=== PATIENT | male | born 1990 | race Two or more races ===

== ENCOUNTER 2020-03-15 07:25 | Outpatient (REF) | payer MEDICAID, SELFPAY | END 2020-03-15 07:26 | disposition home or self-care (01) | LOC: HO.LAB 07:25 | PROVIDERS: PCP Internal Medicine; Visit Provider Internal Medicine | DX: Z20.828 Contact with and (suspected) exposure to other viral communicable diseases (principal) | CPT/HCPCS: C9803; U0003 ==

== ENCOUNTER 2020-10-26 08:19 | Emergency (ER) | payer MEDICAID, SELFPAY ==
[2020-10-26 08:25] VITALS: BP 120/75; PULSE 90; RESP 18; TEMP 36.6; O2SAT 99; BMI 22.6
--- NOTE | 2020-10-26 08:59 | ECG_ITS ---
Test Reason : GENERAL MEDICAL Blood Pressure : / mmHG Vent. Rate : 058 BPM Atrial Rate : 058 BPM P-R Int : 146 ms QRS Dur : 094 ms QT Int : 418 ms P-R-T Axes : -10 044 041 degrees QTc Int : 410 ms Sinus bradycardia Otherwise normal ECG No previous ECGs available Referred By: Jania Duval Electronically Signed By:Remy Olson
--- NOTE | 2020-10-26 09:00 | PC.NURSE ---
Patient is alert and oriented. Pt states that his stomach hurts if he has a coughing fit. Pt currently denies any pain. Respirations are even and nonlabored
[2020-10-26 09:10] VITALS: BP 123/78; PULSE 60; RESP 16; O2SAT 99
[2020-10-26] MEDS: 0.9 % Sodium Chloride 1,000 ML 999 ML IVCONT (09:11)
[2020-10-26 09:15] LABS: MANUAL DIFF FLAG NO
--- NOTE | 2020-10-26 09:15 | ED_ITS ---
HPI - General Adult General Chief complaint: General Medical Stated complaint: coughing up blood Time Seen by Provider: 10/26/20 08:27 Source: patient Mode of arrival: ambulatory Limitations: no limitations History of Present Illness HPI narrative: 30-year-old male with a past medical history of asthma presenting to the ED with complaints of subjective fevers, chills, intermittent coughing fits with hemoptysis that started on Friday with associated lower chest pain and epigastric/left upper quadrant abdominal pain. Reports that he drank a few shots of alcohol on Friday although his symptoms started the day prior. He denies any measured fevers, dizziness, headache, shortness of breath, dyspnea on exertion, orthopnea, productive cough, radiation of the abdominal pain, diarrhea, constipation, black or bloody stools, recent travel or sick contacts or recent falls or injuries or any other symptoms complaints or concerns at this time. MD complaint: Fevers, chills, intermittent cough with hemoptysis, chest/abd pain Onset (ago): day(s) (Five days) Location: chest and abdomen Related Data Previous Rx's Medication Instructions Recorded lorazepam 1 mg tablet (Ativan) 1 mg PO TID PRN #10 tab 10/26/20 Allergies Allergy/AdvReac Type Severity Reaction Status Date / Time ibuprofen [IBUPROFEN] Allergy Severe FACE Unverified 12/09/19 15:54 SWELLS, HIVES cat dander [CATS] Allergy Intermediate ITCHY EYES Unverified 12/09/19 15:54 AND THROAT, HIVES aspirin Allergy Itching Verified 10/26/20 08:30 Review of Systems Review of Systems: Constitutional : No Weight loss, No Fever, No Chills, No Night Sweats, No Fatigue, No Malaise ENT/Mouth : No Hearing loss, No Ear Pain, No Nasal Congestion, No Sinus Pain, No Hoarseness, No sore throat, No Rhinorrhea, No Swallowing Difficulty Eyes: No Eye Pain, No Swelling, No Redness, No Foreign Body, No Discharge, No Vision Changes Cardiovascular : No SOB, no Dyspnea on Exertion, No Orthopnea, No Edema, No extremity swelling, No Palpitations Respiratory : Positive Cough with hemoptysis, No Sputum, No Wheezing, No Dyspnea Gastrointestinal : Positive nausea/vomiting/epigastric/left upper quadrant abdominal pain, No Diarrhea, No Hematochezia, No Melena Genitourinary : No irregular bleeding, No Dysuria, No Urinary Frequency, No Hematuria, No Urinary Incontinence, No Urgency, No Flank Pain, No Urinary Flow Changes, No Hesitancy Musculoskeletal : No joint pain, No Myalgias, No Joint Swelling Skin : No Skin Lesions, No rash Neuro : No Weakness, No Numbness, No Paresthesias, No Loss of Consciousness, No Dizziness, No Headache Psych : No Anxiety/Panic, No Depression, No SI/HI/AH/VH Heme/Lymph: No Bruising, No Bleeding,No Lymphadenopathy Endocrine : No Polyuria, No Polydipsia, No Temperature Intolerance Yes all other systems are reviewed and are negative [facility] Past Medical History Medical History (Updated 10/26/20 @ 10:35 by TAYLOR Holcomb) Asthma Social History Social History Alcohol intake: current Alcohol intake frequency: holidays/special occasions only Patient Tobacco Use Status: Current someday Tobacco user Substance Use Type: Marijuana Advance Directives: No Advance Directives Information Provided: Yes Physical Exam Vital Signs: Vital Signs: Last Vital Signs Temp 98 F 10/26/20 08:25 Pulse 58 10/26/20 10:50 Resp 17 10/26/20 10:50 BP 127/72 10/26/20 10:50 Pulse Ox 97 10/26/20 10:50 Body Mass Index 22.6 Course Course Course Narrative: 30-year-old male with a past medical history of asthma presenting to the ED with complaints of subjective fevers, chills, intermittent coughing fits with hemoptysis that started on Friday with associated lower chest pain and epigastric/left upper quadrant abdominal pain. Reports that he drank a few shots of alcohol on Friday although his symptoms started the day prior. Labs obtained and reviewed in patient's total bilirubin 1.4. Otherwise all other labs are within normal limits. COVID swab negative. - Patient was pending a CTA of chest for PE and a CT scan of abdomen and pelvis with IV contrast although apparently his job called him and told him if he was not at work by 11:00 that he would be fired even if he was here in the hospital and patient was crying in the room he really did want to have the CTA of his [address] for PE and a CT scan abdomen pelvis IV contrast although he reported he did not want to lose his job I explained to him that legally they cannot fire him if he is seeking medical treatment although the patient wanted to leave against medical advice because he did not want to risk losing his job therefore understood this and explained to the patient to return if any new or worsening symptoms and if he can to come [facility] and to follow up with primary care provider. Patient understands agrees with this plan. Medical Decision Making Medical Records Medical records reviewed: Yes I reviewed the patient's medical records. Lab Data Lab results reviewed: Yes I reviewed the patient's lab results. Result diagrams: 10/26/20 08:59 10/26/20 08:59 Labs: Lab Results 10/26/20 10/26/20 10/26/20 Range/Units 08:59 08:59 08:59 WBC 7.2 (4.8-10.8) X10*3/uL RBC 5.05 (4.60-5.80) X10*6/uL Hgb 15.4 (14.0-18.0) g/dl Hct 44.9 (42-52) % MCV 88.9 (80-98) fL MCH 30.5 (27.0-33.0) pg MCHC 34.3 (31.0-36.0) g/dl RDW 12.4 (11.0-16.0) % Plt Count 284 (160-400) X10*3/uL MPV 8.9 L (9.4-12.4) fL Immature Gran % (Auto) 0.3 (0.0-0.4) % Neut % (Auto) 66.9 (45-73) % Lymph % (Auto) 22.5 (20-40) % [place] % (Auto) 7.9 (2-11) % Eos % (Auto) 1.7 (0-4) % Baso % (Auto) 0.7 (0-2) % Lymph # (Auto) 1.6 (1.2-4.9) X10*3/uL [place] # (Auto) 0.6 (0.1-1.2) X10*3/uL Eos # (Auto) 0.1 (0.0-0.4) X10*3/uL Baso # (Auto) 0.1 (0.0-0.2) X10*3/uL Abs Immat Gran (auto) 0.02 (0.00-0.03) X10*3/uL Absolute Neuts (auto) 4.9 (2.0-8.3) X10*3/uL Absolute Nucleated RBC 0.000 (0.0-0.012) X10*3/uL Nucleated RBC % (auto) 0.0 (0.0-0.2) /100WBC PT 11.3 (9.9-13.0) SEC INR 1.0 (0.9-1.1) APTT 32.8 (24.1-38.0) SEC Sodium (135-145) mmol/L Potassium (3.3-5.1) mmol/L Chloride (96-108) mmol/L Carbon Dioxide (22-29) mmol/L Anion Gap (12-20) BUN (9-16) mg/dL Creatinine (0.5-1.4) mg/dL Estim Creat Clear Calc Estimated GFR Random Glucose (60-115) mg/dL Calcium (8.4-10.2) mg/dL Total Bilirubin (0.0-1.0) mg/dL Direct Bilirubin (0.0-0.5) mg/dL AST (5-37) U/L ALT (0-40) U/L Alkaline Phosphatase (39-117) U/L Total Protein (6.5-8.0) g/dL Albumin (3.5-5.0) g/dL Lipase (8-78) U/L COVID-19 (REGGIE) Negative (Negative) COVID-19 Clin Com See Note 10/26/20 Range/Units 08:59 WBC (4.8-10.8) X10*3/uL RBC (4.60-5.80) X10*6/uL Hgb (14.0-18.0) g/dl Hct (42-52) % MCV (80-98) fL MCH (27.0-33.0) pg MCHC (31.0-36.0) g/dl RDW (11.0-16.0) % Plt Count (160-400) X10*3/uL MPV (9.4-12.4) fL Immature Gran % (Auto) (0.0-0.4) % Neut % (Auto) (45-73) % Lymph % (Auto) (20-40) % [place] % (Auto) (2-11) % Eos % (Auto) (0-4) % Baso % (Auto) (0-2) % Lymph # (Auto) (1.2-4.9) X10*3/uL [place] # (Auto) (0.1-1.2) X10*3/uL Eos # (Auto) (0.0-0.4) X10*3/uL Baso # (Auto) (0.0-0.2) X10*3/uL Abs Immat Gran (auto) (0.00-0.03) X10*3/uL Absolute Neuts (auto) (2.0-8.3) X10*3/uL Absolute Nucleated RBC (0.0-0.012) X10*3/uL Nucleated RBC % (auto) (0.0-0.2) /100WBC PT (9.9-13.0) SEC INR (0.9-1.1) APTT (24.1-38.0) SEC Sodium 138 (135-145) mmol/L Potassium 4.1 (3.3-5.1) mmol/L Chloride 103 (96-108) mmol/L Carbon Dioxide 27 (22-29) mmol/L Anion Gap 12 (12-20) BUN 13 (9-16) mg/dL Creatinine 1.08 (0.5-1.4) mg/dL Estim Creat Clear Calc 88.1 Estimated GFR > 60 Random Glucose 115 (60-115) mg/dL Calcium 9.3 (8.4-10.2) mg/dL Total Bilirubin 1.4 H (0.0-1.0) mg/dL Direct Bilirubin 0.4 (0.0-0.5) mg/dL AST 20 (5-37) U/L ALT 18 (0-40) U/L Alkaline Phosphatase 69 (39-117) U/L Total Protein 7.4 (6.5-8.0) g/dL Albumin 4.6 (3.5-5.0) g/dL Lipase 22 (8-78) U/L COVID-19 (REGGIE) (Negative) COVID-19 Clin Com Discharge Plan Discharge Clinical Impression: Cough with hemoptysis, Abdominal pain, Left against medical advice Patient Disposition: Left Against Medical Advice Instructions: Hemoptysis (ED), Abdominal Pain (ED), Acute Cough (ED) Prescriptions: New lorazepam [Ativan] 1 mg tablet 1 mg PO TID PRN (Reason: anxiety) Qty: 10 RF: 0 Referrals: Aung Funes MD [Primary Care Provider] - 2 days Stand Alone Forms: Work/School Release Interventions: ED Discharge Assessment Last Done: 10/26/20 10:50 Discharge Date/Time: 10/26/20 10:54 Print Language: Syriac
[2020-10-26 09:24] LABS: Basophils Absolute Auto 0.1 X10*3/uL (0.0-0.2); Basophils Percent Auto 0.7 % (0-2); Eosinophils Absolute Auto 0.1 X10*3/uL (0.0-0.4); Eosinophils Percent Auto 1.7 % (0-4); Hematocrit 44.9 % (42-52); Hemoglobin 15.4 g/dl (14.0-18.0); Imm Gran Abs Auto 0.02 X10*3/uL (0.00-0.03); Imm Gran Pct Auto 0.3 % (0.0-0.4); Lymphocytes Absolute Auto 1.6 X10*3/uL (1.2-4.9); Lymphocytes Percent Auto 22.5 % (20-40); Mean Corpuscular HGB Conc 34.3 g/dl (31.0-36.0); Mean Corpuscular Hemoglobin 30.5 pg (27.0-33.0); Mean Corpuscular Volume 88.9 fL (80-98); Mean Platelet Volume 8.9 fL (9.4-12.4); Monocytes Absolute Auto 0.6 X10*3/uL (0.1-1.2); Monocytes Percent Auto 7.9 % (2-11); Neutrophils Absolute Auto 4.9 X10*3/uL (2.0-8.3); Neutrophils Percent Auto 66.9 % (45-73); Platelet Count 284 X10*3/uL (160-400); Red Blood Count 5.05 X10*6/uL (4.60-5.80); Red Cell Distribution Width 12.4 % (11.0-16.0); White Blood Count 7.2 X10*3/uL (4.8-10.8)
[2020-10-26 09:43] LABS: COVID-19 Test Negative (Negative); IDNOW Serial# 08D9AD1C
[2020-10-26 09:55] LABS: Prothrombin Time 11.3 SEC (9.9-13.0)
[2020-10-26 09:57] LABS: Alanine Aminotransferase 18 U/L (0-40); Albumin Level 4.6 g/dL (3.5-5.0); Alkaline Phosphatase 69 U/L (39-117); Anion Gap 12 (12-20); Aspartate Amino Transferase 20 U/L (5-37); Bilirubin Direct 0.4 mg/dL (0.0-0.5); Bilirubin Total 1.4 mg/dL (0.0-1.0); Blood Urea Nitrogen 13 mg/dL (9-16); Calcium 9.3 mg/dL (8.4-10.2); Carbon Dioxide 27 mmol/L (22-29); Chloride 103 mmol/L (96-108); Creatinine Clr Calc Pharmacy 88.1; Estimated Glomerular Filt Rate > 60; Glucose Random 115 mg/dL (60-115); Lipase 22 U/L (8-78); Partial Thromboplastin Time 32.8 SEC (24.1-38.0); Potassium 4.1 mmol/L (3.3-5.1); Sodium 138 mmol/L (135-145); Total Protein 7.4 g/dL (6.5-8.0)
--- NOTE | 2020-10-26 10:48 | PC.NURSE ---
Patient leaving against medical advice. Pt encouraged to stay for treatment but states he cannot because his job is threatening to fire him if he does not go in.
[2020-10-26 10:50] VITALS: BP 127/72; PULSE 58; RESP 17; O2SAT 97
== END 2020-10-26 10:54 | disposition left against medical advice (07) ==
PROVIDERS: Emergency Provider Emergency Medicine; PCP Internal Medicine
DX: R04.2 Hemoptysis (principal); R10.9 Unspecified abdominal pain; Z20.822 Contact with and (suspected) exposure to COVID-19; Z79.899 Other long term (current) drug therapy
CPT/HCPCS: 36415; 80048; 80076; 83690; 85025; 85610; 85730; 87635; 93005; 99284

== ENCOUNTER 2020-10-27 22:12 | Emergency (ER) | payer MEDICAID, SELFPAY | END 2020-10-27 22:35 | disposition left against medical advice (07) | PROVIDERS: Emergency Provider Emergency Medicine; PCP Internal Medicine | DX: R05 Cough (principal) ==

== ENCOUNTER 2020-10-28 18:35 | Emergency (ER) | payer MEDICAID, SELFPAY ==
[2020-10-28 19:01] VITALS: BP 135/89; PULSE 73; RESP 16; TEMP 37.1; O2SAT 98; BMI 22.6
--- NOTE | 2020-10-28 21:26 | ED.GENADULT ---
HPI - General Adult General Chief complaint: General Medical Stated complaint: coughing blood Time Seen by Provider: 10/28/20 21:18 Source: patient Mode of arrival: ambulatory Limitations: no limitations History of Present Illness HPI narrative: Patient comes to the emergency room requesting a printout of his COVID results from October 26. Patient states that he was seen here 2 days ago because he had an episode of hemoptysis. Patient states that hours before he coughed up blood, he had a bloody nose. Patient states that since he was seen in the emergency room, patient feels completely normal, no coughing, no shortness of breath, no hemoptysis, no fever chills. Related Data Previous Rx's Medication Instructions Recorded lorazepam 1 mg tablet (Ativan) 1 mg PO TID PRN #10 tab 10/26/20 Allergies Allergy/AdvReac Type Severity Reaction Status Date / Time ibuprofen [IBUPROFEN] Allergy Severe FACE Unverified 12/09/19 15:54 SWELLS, HIVES cat dander [CATS] Allergy Intermediate ITCHY EYES Unverified 12/09/19 15:54 AND THROAT, HIVES aspirin Allergy Itching Verified 10/26/20 08:30 Review of Systems Review of Systems: Constitutional : No Weight loss, No Fever, No Chills, No Night Sweats, No Fatigue, No Malaise ENT/Mouth : No Hearing loss, No Ear Pain, No Nasal Congestion, No Sinus Pain, No Hoarseness, No sore throat, No Rhinorrhea, No Swallowing Difficulty Eyes: No Eye Pain, No Swelling, No Redness, No Foreign Body, No Discharge, No Vision Changes Cardiovascular : No Chest Pain, No SOB, No Dyspnea on Exertion, No Orthopnea, No Edema, No Palpitations Respiratory : No Cough, No Sputum, No Wheezing, No Smoke Exposure, No Dyspnea Gastrointestinal : No Nausea, No Vomiting, No Diarrhea, No Constipation, No abdominal Pain, No Hematochezia, No Melena Genitourinary : no irregular bleeding, No Dysuria, No Urinary Frequency, No Hematuria, No Urinary Incontinence, No Urgency, No Flank Pain, No Urinary Flow Changes, No Hesitancy Musculoskeletal : No joint pain, No Myalgias, No Joint Swelling Skin : No Skin Lesions, No rash Neuro : No Weakness, No Numbness, No Paresthesias, No Loss of Consciousness, No Dizziness, No Headache Psych : No Anxiety/Panic, No Depression, No SI/HI/AH/VH, No Social Issues, Heme/Lymph: No Bruising, No Bleeding,No Lymphadenopathy Endocrine : No Polyuria, No Polydipsia, No Temperature Intolerance PMF Past Medical History Medical History Asthma Social History Social History Alcohol intake: current Alcohol intake frequency: holidays/special occasions only Patient Tobacco Use Status: Current someday Tobacco user Substance Use Type: Marijuana Advance Directives: No Physical Exam Vital Signs: Vital Signs: Last Vital Signs Temp 98.7 F 10/28/20 19:01 Pulse 73 10/28/20 19:01 Resp 16 10/28/20 19:01 BP 135/89 10/28/20 19:01 Pulse Ox 98 10/28/20 19:01 Body Mass Index 22.6 Const: Other: Appearance: Alert. Oriented X3. No acute distress. Eyes: Pupils equal, round and reactive to light. ENT: Pharynx normal. Neck: Normal inspection. Neck supple. No lymph nodes noted. No crepitus CVS: Normal heart rate and rhythm. Pulses normal. Normal S1 and S2 Respiratory: No respiratory distress. Breath sounds normal. No Wheezing. No rales Abdomen: Soft and nontender. No rigidity. No distention. good BS x4 Skin: Skin warm and dry. Normal skin color. Normal skin turgor. Extremities: No lower extremity edema. No Lacerations. No Rash Neuro: Oriented X 3. No motor deficit. No sensory deficit. Moving all extermities. No slurred speech. Course Course Course Narrative: I discussed with the patient that it is likely that a 1 time episode of hemoptysis she had was likely secondary to the nosebleed he had before. Patient is asymptomatic. I offered to the patient and you COVID swab and a chest x-ray, patient declined. Patient only wants his pain does report from October 26 Discharge Plan Discharge Clinical Impression: Cough in adult, Normal exam Patient Disposition: Home, Self-Care Instructions: Acute Cough (ED) Additional Instructions: Please follow-up with your primary care physician tomorrow. If you have any worsening or new symptoms, please return to the emergency room or call 911 Prescriptions: No Action lorazepam [Ativan] 1 mg tablet 1 mg PO TID PRN (Reason: anxiety) Qty: 10 RF: 0
== END 2020-10-28 21:44 | disposition home or self-care (01) ==
PROVIDERS: Emergency Provider Emergency Medicine
DX: Z71.1 Person with feared health complaint in whom no diagnosis is made (principal); R05 Cough
CPT/HCPCS: 99282; 99283

== ENCOUNTER 2021-03-01 09:15 | Outpatient (REF) | payer MEDICAID, SELFPAY ==
[2021-03-01 09:51] LABS: COVID-19 Test Negative (Negative)
== END 2021-03-01 09:16 | disposition home or self-care (01) ==
LOC: HO.LAB 09:15
PROVIDERS: Visit Provider Internal Medicine
DX: Z20.822 Contact with and (suspected) exposure to COVID-19 (principal)
CPT/HCPCS: 36415; 87635; C9803

== ENCOUNTER 2021-10-19 12:54 | Emergency (ER) | payer MEDICAID, SELFPAY ==
[2021-10-19 12:59] VITALS: BP 116/78; PULSE 62; RESP 18; TEMP 37.2; O2SAT 97; BMI 25.6
[2021-10-19 13:16] LABS: COVID-19 Test Positive (Negative); IDNOW Serial# 16C4AD1C
[2021-10-19 15:47] VITALS: BP 132/76; PULSE 78; RESP 18; TEMP 37.3; O2SAT 99
--- NOTE | 2021-10-19 16:20 | ED_ITS ---
HPI - General Adult General Chief complaint: General Medical Stated complaint: covid+ Time Seen by Provider: 10/19/21 15:20 Source: patient Mode of arrival: ambulatory Limitations: no limitations History of Present Illness HPI narrative: pt comes to the ED c/o flu like symptoms. Pt c/o nausea, vomiting, general weakness. Pt denies chest pain or SOB. Pt had a positive covid test 1 week ago. Patient has not been immunized for COVID-19 at all Related Data Previous Rx's Medication Instructions Recorded lorazepam 1 mg tablet (Ativan) 1 mg PO TID PRN anxiety #10 tabs 10/26/20 ondansetron 4 mg disintegrating 4 mg PO Q6H PRN nausea and 10/19/21 tablet vomiting #14 tabs Allergies Allergy/AdvReac Type Severity Reaction Status Date / Time ibuprofen [IBUPROFEN] Allergy Severe FACE Unverified 12/09/19 15:54 SWELLS, HIVES cat dander [CATS] Allergy Intermediate ITCHY EYES Unverified 12/09/19 15:54 AND THROAT, HIVES aspirin Allergy Itching Verified 10/26/20 08:30 Review of Systems Review of Systems: Constitutional : No Weight loss, No Fever, complaining of chills, fatigue, generalized malaise ENT/Mouth : No Hearing loss, No Ear Pain, No Nasal Congestion, No Sinus Pain, No Hoarseness, No sore throat, No Rhinorrhea, No Swallowing Difficulty Eyes: No Eye Pain, No Swelling, No Redness, No Foreign Body, No Discharge, No Vision Changes Cardiovascular : No Chest Pain, No SOB, No Dyspnea on Exertion, No Orthopnea, No Edema, No Palpitations Respiratory : No Cough, No Sputum, No Wheezing, No Smoke Exposure, No Dyspnea Gastrointestinal : Complaining of nausea vomiting, No Diarrhea, No Constipation, No abdominal Pain, No Hematochezia, No Melena Genitourinary : no irregular bleeding, No Dysuria, No Urinary Frequency, No Hematuria, No Urinary Incontinence, No Urgency, No Flank Pain, No Urinary Flow Changes, No Hesitancy Musculoskeletal : No joint pain, No Myalgias, No Joint Swelling Skin : No Skin Lesions, No rash Neuro : No Weakness, No Numbness, No Paresthesias, No Loss of Consciousness, No Dizziness, No Headache Psych : No Anxiety/Panic, No Depression, No SI/HI/AH/VH, No Social Issues, Heme/Lymph: No Bruising, No Bleeding,No Lymphadenopathy Endocrine : No Polyuria, No Polydipsia, No Temperature Intolerance [facility] Past Medical History Medical History Asthma Social History Social History Alcohol intake: current Alcohol intake frequency: holidays/special occasions only Patient Tobacco Use Status: Current someday Tobacco user Substance Use Type: Marijuana Advance Directives: No Advance Directives Information Provided: No Physical Exam ED Vital Signs: Vital Signs - 24 hr 10/19/21 12:59 10/19/21 15:47 Temperature 98.9 F 99.2 F Pulse Rate 62 78 Respiratory Rate 18 18 Blood Pressure 116/78 132/76 Pulse Oximetry 97 99 Oxygen Delivery Method Room Air Room Air BMI result Body Mass Index 25.6 Const Other: Appearance: Alert. Oriented X3. No acute distress. Eyes: Pupils equal, round and reactive to light. ENT: Pharynx normal. Neck: Normal inspection. Neck supple. No lymph nodes noted. No crepitus CVS: Normal heart rate and rhythm. Pulses normal. Normal S1 and S2 Respiratory: No respiratory distress. Breath sounds normal. No Wheezing. No rales Abdomen: Soft and nontender. No rigidity. No distention. Skin: Skin warm and dry. Normal skin color. Normal skin turgor. Extremities: No lower extremity edema. No Lacerations. No Rash Neuro: Oriented X 3. No motor deficit. No sensory deficit. Moving all extremities. No slurred speech. CN 2 through 12 grossly intact Psych: calm, cooperative, normal affect Course Course Course Narrative: Patient is well-appearing. Patient's oxygen saturation is 98% on room air, even after walking the patient in his room. No chest pain or shortness of breath. At this time, patient is out of the window for Paxlovid tx Medical Decision Making Lab Data Labs: Lab Results 10/19/21 Range/Units 13:02 COVID-19 (REGGIE) Positive A (Negative) COVID-19 Clin Com See Note Discharge Plan Discharge Clinical Impression: COVID-19 Patient Disposition: Home, Self-Care Instructions: COVID-19 (Coronavirus Disease 2019) (ED) Additional Instructions: Please follow-up with your primary care physician tomorrow. If you have any worsening or new symptoms, please return to the emergency room or call 911. You need to be tested for COVID before your return to work. Prescriptions: New ondansetron 4 mg tablet,disintegrating 4 mg PO Q6H PRN (Reason: nausea and vomiting) Qty: 14 0RF No Action lorazepam [Ativan] 1 mg tablet 1 mg PO TID PRN (Reason: anxiety) Qty: 10 0RF Stand Alone Forms: Work/School Release
== END 2021-10-19 17:08 | disposition home or self-care (01) ==
PROVIDERS: Emergency Provider Emergency Medicine; PCP Internal Medicine
DX: U07.1 COVID-19 (principal); R50.9 Fever, unspecified
CPT/HCPCS: 87635; 99282; 99283

== ENCOUNTER 2022-04-23 18:00 | Emergency (ER) | payer MEDICAID, SELFPAY ==
[2022-04-23 19:10] VITALS: BP 143/84; PULSE 88; RESP 18; TEMP 36.4; O2SAT 98; BMI 24.1
--- NOTE | 2022-04-23 19:12 | ED.GENADULT ---
HPI - General Adult General Chief complaint: Upper Respiratory Symptoms <TAYLOR Weber - Last Filed: 04/29/22 12:53> Stated complaint: flu symptoms <TAYLOR Weber Last Filed: 04/29/22 12:53> Time Seen by Provider: 04/23/22 21:25 <TAYLOR Weber Last Filed: 04/29/22 12:53> Source: patient <TAYLOR Sim Last Filed: 04/23/22 21:54> Mode of arrival: ambulatory <TAYLOR Sim Last Filed: 04/23/22 21:54> Limitations: no limitations <TAYLOR Sim Last Filed: 04/23/22 21:54> History of Present Illness HPI narrative: This is a 31-year-old male history of asthma presenting with persistent dry cough, fatigue, malaise, body aches and pains, nausea and vomiting x3 days, patient also tells me he has been febrile T-max 103 degrees F, he reports his entire household is sick with similar symptoms. One of his children recently tested positive for RSV. Patient tells me he has not had much of an appetite however still eating and drinking. Patient denies chest pain, shortness of breath, abdominal pain, headache, vision changes, dizziness and weakness. <TAYLOR Sim - Last Filed: 04/23/22 21:54> Related Data Home medications: Previous Rx's Medication Instructions Recorded lorazepam 1 mg tablet (Ativan) 1 mg PO TID PRN anxiety #10 tabs 10/26/20 ondansetron 4 mg disintegrating 4 mg PO Q6H PRN nausea and 10/19/21 tablet vomiting #14 tabs albuterol sulfate 90 mcg/actuation 2 inh inhalation Q4-6H PRN 04/23/22 breath activated powder inhaler shortness of breath or wheezing #1 ea benzonatate 100 mg capsule 100 mg PO BID PRN cough #20 caps 04/23/22 ondansetron 4 mg disintegrating 4 mg PO Q6H PRN nausea and 04/23/22 tablet vomiting #14 tabs prednisone 20 mg tablet 40 mg PO DAILY 5 days #10 tabs 04/23/22 <TAYLOR Weber Last Filed: 04/29/22 12:53> Allergies/adverse reactions: Allergies Allergy/AdvReac Type Severity Reaction Status Date / Time ibuprofen [IBUPROFEN] Allergy Severe FACE Unverified 12/09/19 15:54 SWELLS, HIVES cat dander [CATS] Allergy Intermediate ITCHY EYES Unverified 12/09/19 15:54 AND THROAT, HIVES aspirin Allergy Itching Verified 10/26/20 08:30 <TAYLOR Weber - Last Filed: 04/29/22 12:53> Review of Systems Review of Systems: Constitutional : No Weight loss, + Fever, + Chills, + Fatigue, + Malaise ENT/Mouth : No sore throat, No Rhinorrhea Eyes: No Eye Pain, No Swelling, No Redness Cardiovascular : No Chest Pain, No SOB, No Dyspnea on Exertion, No Orthopnea, No Edema, No Palpitations Respiratory : + Cough, No Sputum, No Wheezing Gastrointestinal : No Nausea, No Vomiting, No Diarrhea, No Constipation, No abdominal Pain, No Hematochezia, No Melena Genitourinary : No Dysuria, No Urinary Frequency, No Hematuria, Musculoskeletal : No joint pain, + Myalgias, No Joint Swelling Skin : No Skin Lesions, No rash Neuro : No Weakness, No Numbness, No Dizziness, No Headache Psych : No Anxiety/Panic, No Depression All other systems reviewed and are negative <TAYLOR Sim - Last Filed: 04/23/22 21:54> Yes all other systems are reviewed and are negative <TAYLOR Sim - Last Filed: 04/23/22 21:54> [facility] Past Medical History Attestation statement: The following information was validated with the patient. <TAYLOR Sim - Last Filed: 04/23/22 21:54> Source: old records reviewed and nursing notes reviewed <TAYLOR Sim - Last Filed: 04/23/22 21:54> Medical History: Medical History Asthma <TAYLOR Weber - Last Filed: 04/29/22 12:53> Social History Social History: Social History Alcohol intake: current Alcohol intake frequency: holidays/special occasions only Patient Tobacco Use Status: Current someday Tobacco user Substance Use Type: Marijuana Advance Directives: No Advance Directives Information Provided: Yes <TAYLOR Weber - Last Filed: 04/29/22 12:53> Physical Exam ED Vital Signs: Vital Signs - 24 hr 04/23/22 19:10 Temperature 97.5 F Pulse Rate 88 Respiratory Rate 18 Blood Pressure 143/84 H Pulse Oximetry 98 Oxygen Delivery Method Room Air BMI result Body Mass Index 24.1 <TAYLOR Weber - Last Filed: 04/29/22 12:53> Vital Signs - 24 hr 04/23/22 19:10 Temperature 97.5 F Pulse Rate 88 Respiratory Rate 18 Blood Pressure 143/84 H Pulse Oximetry 98 Oxygen Delivery Method Room Air BMI result Body Mass Index 24.1 Vital signs stable <TAYLOR Sim - Last Filed: 04/23/22 21:54> Appearance: Alert.? Oriented X3.? No acute distress.? Head: Normocephalic, atraumatic, no step-offs or deformities Eyes: Pupils equal, round and reactive to light.? ENT: Pharynx normal.? Neck: Normal inspection.? Neck supple.? CVS: Normal heart rate and rhythm.? Pulses normal.? Respiratory: No respiratory distress.? Breath sounds normal.? Abdomen: Soft and nontender.? Skin: Skin warm and dry.? Normal skin color.? Normal skin turgor.? Extremities: No lower extremity edema.? No calf ttp. 5/5 strength to bilateral upper and lower extremities Neuro: Oriented X 3.? No motor deficit.? No sensory deficit. CN 2-12 intact <TAYLOR Sim - Last Filed: 04/23/22 21:54> Course Course Course Narrative: RME: 31 yold male presents to the ED for Flu like symptoms. States people at home are sick. SARS ordered <TAYLOR Weber - Last Filed: 04/29/22 12:53> Reevaluation(s) Reevaluation #1: Flu/COVID/RSV negative however patient has close sick contacts with RSV, presumed positive. Will be discharged home with prednisone, albuterol, benzonatate Perles, Zofran for nausea and vomiting. Educated patient on diagnosis and treatment plan, answered all question, patient verbalizes understanding. At this time patient will be discharged home, advised to return with new or worsening symptoms. Educated on worrisome signs and symptoms and when to return. At this time I feel comfortable discharge home. <TAYLOR Sim - Last Filed: 04/23/22 21:54> Time: 21:53 <TAYLOR Sim - Last Filed: 04/23/22 21:54> Medical Decision Making Medical Decision Making [facility] Narrative: [id number] 31-year-old male presents to the emergency department with fatigue, malaise, fevers, chills, dry cough, recent sick contact with children at home or are RSV positive. Physical examination benign. Suspected viral infection versus RSV. Unlikely PE, pneumonia, no signs of pneumothorax. No signs of acute abdomen. Plan at this time viral testing <TAYLOR Sim Last Filed: 04/23/22 21:54> Differential Diagnosis Differential Diagnoses: The differential diagnosis associated with the presentation includes <TAYLOR Sim - Last Filed: 04/23/22 21:54> Suspected viral infection versus RSV. Unlikely PE, pneumonia, no signs of pneumothorax. No signs of acute abdomen. <TAYLOR Sim - Last Filed: 04/23/22 21:54> Admission/Observation Consideration of admission/observation: Escalation of care including admission/observation considered <TAYLOR Sim - Last Filed: 04/23/22 21:54> Lab Data Labs: Lab Results 04/23/22 Range/Units 19:18 Influenza Type A (PCR) NEGATIVE (Negative) Influenza Type B (PCR) NEGATIVE (Negative) RSV RNA Qual (PCR) NEGATIVE (Negative) SARS-CoV-2 RNA (RT-PCR) NEGATIVE (Negative) <TAYLOR Weber - Last Filed: 04/29/22 12:53> Lab Results 04/23/22 Range/Units 19:18 Influenza Type A (PCR) NEGATIVE (Negative) Influenza Type B (PCR) NEGATIVE (Negative) RSV RNA Qual (PCR) NEGATIVE (Negative) SARS-CoV-2 RNA (RT-PCR) NEGATIVE (Negative) <TAYLOR Sim Last Filed: 04/23/22 21:54> Core Measures AMI core measures followed: Yes <TAYLOR Sim Last Filed: 04/23/22 21:54> Measure exclusions: not indicated <TAYLOR Sim Last Filed: 04/23/22 21:54> Discharge Plan Discharge Clinical Impression: Viral infection, Cough, Nausea & vomiting <TAYLOR Weber Last Filed: 04/29/22 12:53> Patient Disposition: Home, Self-Care <TAYLOR Weber Last Filed: 04/29/22 12:53> Instructions: Acute Nausea and Vomiting (ED), Viral Syndrome (ED) <TAYLOR Weber Last Filed: 04/29/22 12:53> Additional Instructions: Take your medications as prescribed. If you were prescribed antibiotics today, it is important that you take your medication to their entirety, do not skip any doses, do not finish them early. Follow-up with your primary care provider this week. Return to the emergency department with new or worsening symptoms. Such as fevers, chills, chest pain, shortness of breath, nausea, vomiting, dizziness, headache, vision changes, lethargy In case of emergency call 911 Your flu/COVID/RSV test came back negative. However due to your close contact with RSV your presumed positive. <TAYLOR Weber Last Filed: 04/29/22 12:53> Prescriptions: New albuterol sulfate 90 mcg/actuation aerosol powdr breath activated 2 inh inhalation Q4-6H PRN (Reason: shortness of breath or wheezing) Qty: 1 0RF benzonatate 100 mg capsule 100 mg PO BID PRN (Reason: cough) Qty: 20 0RF prednisone 20 mg tablet 40 mg PO DAILY 5 Days Qty: 10 0RF ondansetron 4 mg tablet,disintegrating 4 mg PO Q6H PRN (Reason: nausea and vomiting) Qty: 14 0RF No Action lorazepam [Ativan] 1 mg tablet 1 mg PO TID PRN (Reason: anxiety) Qty: 10 0RF ondansetron 4 mg tablet,disintegrating 4 mg PO Q6H PRN (Reason: nausea and vomiting) Qty: 14 0RF <TAYLOR Weber Filed: 04/29/22 12:53> Referrals: Physician,Unknown J [Primary Care Provider] - 2 days <TAYLOR Weber - Last Filed: 04/29/22 12:53> Stand Alone Forms: Work/School Release <TAYLOR Weber - Last Filed: 04/29/22 12:53> Interventions: ED Discharge Assessment Last Done: 04/23/22 22:00 <TAYLOR Weber - Last Filed: 04/29/22 12:53> Discharge Date/Time: 04/23/22 22:00 <TAYLOR Weber - Last Filed: 04/29/22 12:53>
[2022-04-23 20:06] LABS: Influenza A PCR NEGATIVE (Negative); Influenza B PCR NEGATIVE (Negative); Resp Syncy Virus RNA Qual PCR NEGATIVE (Negative); SARS COV2 PCR INHOUSE NEGATIVE (Negative)
== END 2022-04-23 22:00 | disposition home or self-care (01) ==
PROVIDERS: Physician Assistant; Emergency Provider Internal Medicine
DX: B34.9 Viral infection, unspecified (principal); R11.2 Nausea with vomiting, unspecified; R05.9 Cough, unspecified; R50.9 Fever, unspecified; Z20.822 Contact with and (suspected) exposure to COVID-19; Z20.828 Contact with and (suspected) exposure to other viral communicable diseases; F17.200 Nicotine dependence, unspecified, uncomplicated; F12.90 Cannabis use, unspecified, uncomplicated; Z79.899 Other long term (current) drug therapy
CPT/HCPCS: 0241U; 99282; 99283

== ENCOUNTER 2022-04-30 12:30 | Emergency (ER) | payer MEDICAID, SELFPAY ==
--- NOTE | 2022-04-30 12:55 | ED.EYEPROB ---
HPI - Eye Problem Related Data Previous Rx's Medication Instructions Recorded lorazepam 1 mg tablet (Ativan) 1 mg PO TID PRN anxiety #10 tabs 10/26/20 ondansetron 4 mg disintegrating 4 mg PO Q6H PRN nausea and 10/19/21 tablet vomiting #14 tabs albuterol sulfate 90 mcg/actuation 2 inh inhalation Q4-6H PRN 04/23/22 breath activated powder inhaler shortness of breath or wheezing #1 ea benzonatate 100 mg capsule 100 mg PO BID PRN cough #20 caps 04/23/22 ondansetron 4 mg disintegrating 4 mg PO Q6H PRN nausea and 04/23/22 tablet vomiting #14 tabs prednisone 20 mg tablet 40 mg PO DAILY 5 days #10 tabs 04/23/22 tobramycin 0.3 % eye drops 2 drp ophthalmic-Right Q4H 5 days 04/30/22 #5 mL Allergies Allergy/AdvReac Type Severity Reaction Status Date / Time ibuprofen [IBUPROFEN] Allergy Severe FACE Unverified 12/09/19 15:54 SWELLS, HIVES cat dander [CATS] Allergy Intermediate ITCHY EYES Unverified 12/09/19 15:54 AND THROAT, HIVES aspirin Allergy Itching Verified 10/26/20 08:30 [facility], [facility] Past Medical History Medical History Asthma Social History Social History Alcohol intake: current Alcohol intake frequency: holidays/special occasions only Patient Tobacco Use Status: Current someday Tobacco user Substance Use Type: Marijuana Advance Directives: No Physical Exam Vital Signs: Vital Signs: Last Vital Signs Temp 97.3 F 04/30/22 12:56 Pulse 84 04/30/22 12:56 Resp 16 04/30/22 12:56 BP 134/97 H 04/30/22 12:56 Pulse Ox 99 04/30/22 12:56 O2 Del Method 04/30/22 12:56 BMI result Body Mass Index 24.1 Course Course Course Narrative: This is an RME: Additional HPI, ROS, PE not included below will be deferred to primary provider. Patient is a 31-year-old male who presents emergency department for evaluation of right eye complaint. States yesterday, in the afternoon, began with right eye swelling, Has FB sensation, and drainage this morning. R eye vision changes cloudy . Plan: Visual acuity, further examination, placed in waiting room pending bed availability. Discharge Plan Discharge Clinical Impression: Bacterial conjunctivitis Patient Disposition: Home, Self-Care Instructions: Conjunctivitis (ED) Additional Instructions: Apply Tobramycin eye drops 2 drops to affected eye every 4 hours for 5 days. Do not stick anything in the eye. You may also use warm compresses for any swelling Prescriptions: New tobramycin 0.3 % drops 2 drp ophthalmic-Right Q4H 5 Days Qty: 5 0RF No Action lorazepam [Ativan] 1 mg tablet 1 mg PO TID PRN (Reason: anxiety) Qty: 10 0RF ondansetron 4 mg tablet,disintegrating 4 mg PO Q6H PRN (Reason: nausea and vomiting) Qty: 14 0RF albuterol sulfate 90 mcg/actuation aerosol powdr breath activated 2 inh inhalation Q4-6H PRN (Reason: shortness of breath or wheezing) Qty: 1 0RF benzonatate 100 mg capsule 100 mg PO BID PRN (Reason: cough) Qty: 20 0RF prednisone 20 mg tablet 40 mg PO DAILY 5 Days Qty: 10 0RF ondansetron 4 mg tablet,disintegrating 4 mg PO Q6H PRN (Reason: nausea and vomiting) Qty: 14 0RF Stand Alone Forms: Work/School Release Interventions: ED Discharge Assessment Last Done: 04/30/22 15:17 Discharge Date/Time: 04/30/22 15:18
[2022-04-30 12:56] VITALS: BP 134/97; PULSE 84; RESP 16; TEMP 36.3; O2SAT 99; BMI 24.1
--- NOTE | 2022-04-30 14:52 | ED.GENADULT ---
HPI - General Adult General Chief complaint: Eye Problems Stated complaint: R EYE ISSUE Time Seen by Provider: 04/30/22 14:35 Source: patient and RN notes reviewed Mode of arrival: ambulatory Limitations: no limitations History of Present Illness HPI narrative: 33-year-old male who denies any past medical history presents for evaluation of right eye redness. Patient reports approximately 24 hours ago he developed swelling, redness and discharge from the right eye. Patient denies any trauma to the area, denies denies getting anything in the eye He does not wear contacts or glasses Patient reports mild discomfort. He reports that his eye was crusted shut this morning. His daughter had pinkeye last week and his son had pinkeye the week before Related Data Previous Rx's Medication Instructions Recorded lorazepam 1 mg tablet (Ativan) 1 mg PO TID PRN anxiety #10 tabs 10/26/20 ondansetron 4 mg disintegrating 4 mg PO Q6H PRN nausea and 10/19/21 tablet vomiting #14 tabs albuterol sulfate 90 mcg/actuation 2 inh inhalation Q4-6H PRN 04/23/22 breath activated powder inhaler shortness of breath or wheezing #1 ea benzonatate 100 mg capsule 100 mg PO BID PRN cough #20 caps 04/23/22 ondansetron 4 mg disintegrating 4 mg PO Q6H PRN nausea and 04/23/22 tablet vomiting #14 tabs prednisone 20 mg tablet 40 mg PO DAILY 5 days #10 tabs 04/23/22 tobramycin 0.3 % eye drops 2 drp ophthalmic-Right Q4H 5 days 04/30/22 #5 mL Allergies Allergy/AdvReac Type Severity Reaction Status Date / Time ibuprofen [IBUPROFEN] Allergy Severe FACE Unverified 12/09/19 15:54 SWELLS, HIVES cat dander [CATS] Allergy Intermediate ITCHY EYES Unverified 12/09/19 15:54 AND THROAT, HIVES aspirin Allergy Itching Verified 10/26/20 08:30 Review of Systems Constitutional: Constitutional: Reports as per HPI, Denies chills and Denies fatigue Eyes: Eyes: Reports as per HPI, Reports blurry vision, Reports eye discharge and Reports other (Red eye redness) Cardiovascular: Cardiovascular: Denies chest pain and Denies dyspnea Respiratory: Respiratory: Denies cough and Denies dyspnea Gastrointestinal: Gastrointestinal: Denies abdominal pain, Denies constipation and Denies vomiting Genitourinary: Genitourinary: Denies difficulty urinating and Denies dysuria Endocrine: Endocrine: Denies fatigue PMFSH Past Medical History Medical History Asthma Social History Social History Alcohol intake: current Alcohol intake frequency: holidays/special occasions only Patient Tobacco Use Status: Current someday Tobacco user Substance Use Type: Marijuana Advance Directives: No Physical Exam ED Vital Signs: Vital Signs - 24 hr 04/30/22 12:56 Temperature 97.3 F Pulse Rate 84 Respiratory Rate 16 Blood Pressure 134/97 H Pulse Oximetry 99 Oxygen Delivery Method Room Air BMI result Body Mass Index 24.1 Const General: healthy appearing, comfortable, no acute distress, alert and awake Nutritional Appearance: well nourished Orientation/consciousness: patient oriented x3 Eyes Periorbital: periorbital findings normal (No evidence of surrounding erythema or evidence of periorbital cellulitis) Eyelids: Yes eyelids normal and No lid lag Conjunctivae: conjunctival abnormal right (Right-sided conjunctival injection) discharge and other (No evidence of corneal ulceration. No obvious foreign body); Negative for conjunctival icterus, without chemosis, without pterygia and without subconjunctival hemmorhages Pupils: Equal, round and reactive pupils present Resp Effort & Inspection: normal respiratory effort, able to speak in complete sentences, no audible wheezes and not labored Skin General skin exam: no rashes or lesions noted and elasticity normal Lesions: no lesions Rashes: no rashes Neuro General: patient oriented x3 Cranial nerves: Yes Equal, round and reactive pupils present Medical Decision Making Medical Decision Making MDM Narrative: This is a healthy 31-year-old male presents for evaluation of atraumatic right eye redness and discharge. This is clinical history for conjunctivitis. Furthermore, the patient had 2 sick contacts at home never diagnosed with conjunctivitis that improved with topical antibiotics. The patient has no pain, no loss of vision. Glaucoma, iritis, corneal abrasion less likely in the absence of pain. Differential Diagnosis Differential Diagnoses: The differential diagnosis associated with the presentation includes (Conjunctivitis, Iritis, corneal abrasion, glaucoma) Right Eye Conjunctivitis Discharge Plan Discharge Clinical Impression: Bacterial conjunctivitis Patient Disposition: Home, Self-Care Instructions: Conjunctivitis (ED) Additional Instructions: Apply Tobramycin eye drops 2 drops to affected eye every 4 hours for 5 days. Do not stick anything in the eye. You may also use warm compresses for any swelling Prescriptions: New tobramycin 0.3 % drops 2 drp ophthalmic-Right Q4H 5 Days Qty: 5 0RF No Action lorazepam [Ativan] 1 mg tablet 1 mg PO TID PRN (Reason: anxiety) Qty: 10 0RF ondansetron 4 mg tablet,disintegrating 4 mg PO Q6H PRN (Reason: nausea and vomiting) Qty: 14 0RF albuterol sulfate 90 mcg/actuation aerosol powdr breath activated 2 inh inhalation Q4-6H PRN (Reason: shortness of breath or wheezing) Qty: 1 0RF benzonatate 100 mg capsule 100 mg PO BID PRN (Reason: cough) Qty: 20 0RF prednisone 20 mg tablet 40 mg PO DAILY 5 Days Qty: 10 0RF ondansetron 4 mg tablet,disintegrating 4 mg PO Q6H PRN (Reason: nausea and vomiting) Qty: 14 0RF
== END 2022-04-30 15:18 | disposition home or self-care (01) ==
PROVIDERS: Emergency Provider Emergency Medicine; PCP Internal Medicine
DX: H10.33 Unspecified acute conjunctivitis, bilateral (principal)
CPT/HCPCS: 99282; 99283

== ENCOUNTER 2022-11-22 18:02 | Emergency (ER) | payer MEDICAID, SELFPAY ==
--- NOTE | ~2022-11-22 | XR_ITS ---
EXAMINATION: XR CERVICAL SPINE CLINICAL INFORMATION: Pain COMPARISON: None available. TECHNIQUE: 3 views of the cervical spine were obtained. FINDINGS: Bone alignment is normal. No fracture or dislocation. Degenerative spondylosis at C4-C5 C5-C6 and C6-C7. Disc space narrowing at C4-C5. Prevertebral soft tissues are normal. XR/XR cervical spine 3V IMPRESSION: Degenerative changes.
[2022-11-22 18:22] VITALS: BP 147/93; PULSE 76; RESP 18; TEMP 36.7; O2SAT 98; BMI 24.1
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
[2022-11-22 20:21] VITALS: BP 150/99; PULSE 63; O2SAT 99
== END 2022-11-22 20:38 | disposition home or self-care (01) ==
PROVIDERS: Emergency Provider Emergency Medicine; PCP Internal Medicine
DX: S13.4XXA Sprain of ligaments of cervical spine, initial encounter (principal); M54.2 Cervicalgia; R51.9 Headache, unspecified; V43.52XA Car driver injured in collision with other type car in traffic accident, initial encounter; Y93.9 Activity, unspecified; Y92.410 Unspecified street and highway as the place of occurrence of the external cause; Y99.9 Unspecified external cause status; Z79.899 Other long term (current) drug therapy
CPT/HCPCS: 72040; 99283

== ENCOUNTER 2023-01-13 20:21 | Emergency (ER) | payer MEDICAID, SELFPAY ==
[2023-01-13 21:10] VITALS: BP 141/87; PULSE 89; RESP 18; TEMP 36.8; O2SAT 97; BMI 25.8
[2023-01-14 03:21] LABS: Influenza A PCR NEGATIVE (Negative); Influenza B PCR NEGATIVE (Negative); Resp Syncy Virus RNA Qual PCR NEGATIVE (Negative); SARS COV2 PCR INHOUSE NEGATIVE (Negative)
[2023-01-14 03:33] VITALS: BP 164/92; PULSE 77; RESP 16; TEMP 36.6; O2SAT 99
--- NOTE | 2023-01-14 04:22 | ED.GENADULT ---
HPI - General Adult General Chief complaint: General Medical Stated complaint: severe throat pain Time Seen by Provider: 01/14/23 04:21 Source: patient Mode of arrival: ambulatory Limitations: no limitations History of Present Illness HPI narrative: Patient with chronic sinus problem been coughing for last 24 hours noticed small amount of blood no chest pain or shortness of breath no fever or chills Related Data Previous Rx's Medication Instructions Recorded lorazepam 1 mg tablet (Ativan) 1 mg PO TID PRN anxiety #10 tabs 10/26/20 ondansetron 4 mg disintegrating 4 mg PO Q6H PRN nausea and 10/19/21 tablet vomiting #14 tabs albuterol sulfate 90 mcg/actuation 2 inh inhalation Q4-6H PRN 04/23/22 breath activated powder inhaler shortness of breath or wheezing #1 ea benzonatate 100 mg capsule 100 mg PO BID PRN cough #20 caps 04/23/22 ondansetron 4 mg disintegrating 4 mg PO Q6H PRN nausea and 04/23/22 tablet vomiting #14 tabs prednisone 20 mg tablet 40 mg (2 x 20 mg) PO DAILY 5 days 04/23/22 #10 tabs tobramycin 0.3 % eye drops 2 drp ophthalmic-Right Q4H 5 days 04/30/22 #5 mL methocarbamol 500 mg tablet 500 mg PO QID muscle spasms #16 11/22/22 tabs amoxicillin 875 mg-potassium 1 tab PO BID #20 tabs 01/14/23 clavulanate 125 mg tablet benzonatate 200 mg capsule 200 mg PO TID PRN cough #30 caps 01/14/23 fexofenadine 180 mg tablet 180 mg PO DAILY #90 tabs 01/14/23 (Apryl Allergy) fluticasone propionate 50 2 spray intranasal DAILY PRN nasal 01/14/23 mcg/actuation nasal congestion #16 grams spray,suspension (Children's Flonase Allergy Relief) prednisone 20 mg tablet 40 mg (2 x 20 mg) PO DAILY #10 tabs 01/14/23 Allergies Allergy/AdvReac Type Severity Reaction Status Date / Time ibuprofen [IBUPROFEN] Allergy Severe FACE Verified 01/14/23 05:06 SWELLS, HIVES cat dander [CATS] Allergy Intermediate ITCHY EYES Verified 01/14/23 05:06 AND THROAT, HIVES mint Allergy Mild Rash Verified 01/14/23 05:06 aspirin Allergy Itching Verified 01/14/23 05:06 Review of Systems Review of Systems: Yes all other systems are reviewed and are negative PMFSH Past Medical History Medical History Asthma Social History Social History Alcohol intake: current Alcohol intake frequency: holidays/special occasions only Patient Tobacco Use Status: Current someday Tobacco user Smoked in Last 30 Days: No Use of substances other than those prescribed or required for medical reasons: Yes Substance Use Type: Marijuana Substance Use Frequency: Occasionally Advance Directives: No Advance Directives Information Provided: Yes Physical Exam ED Vital Signs: Vital Signs - 24 hr 01/14/23 03:33 Temperature 97.9 F Pulse Rate 77 Respiratory Rate 16 Blood Pressure 164/92 H Pulse Oximetry 99 Oxygen Delivery Method Room Air BMI result Body Mass Index 25.8 Appearance: Alert. Oriented X3. No acute distress. ENT: Pharynx normal. Oral Mucosa moist clear nasal discharge inflamed turbinates specially on the right side Neck: Normal inspection. Neck supple. CVS: Normal heart rate and rhythm. Pulses normal. Respiratory: No respiratory distress. Equal air entry bilateral, no wheezing/rales/rhonchi Abdomen: Soft and nontender. Skin: Skin warm and dry. Normal skin color. Normal skin turgor. Extremities: No lower extremity edema. Neuro: Oriented X 3. Medications Administered Discontinued Medications Generic Name Dose Route Start Last Admin Trade Name Freq PRN Reason Stop Dose Admin Amoxicillin/Clavulanate Potassium 875 mg 01/14/23 04:38 01/14/23 05:14 Amoxicillin/Potassium Clav 875 Mg Tablet PO 01/14/23 04:39 875 mg ONCE ONE Administration Benzonatate 200 mg 01/14/23 04:38 01/14/23 05:14 Benzonatate 100 Mg Capsule PO 01/14/23 04:39 200 mg ONCE ONE Administration Prednisone 40 mg 01/14/23 04:38 01/14/23 05:14 Prednisone 20 Mg Tablet PO 01/14/23 04:39 40 mg ONCE ONE Administration Medical Decision Making Medical Decision Making MDM Narrative: Patient with rhinitis c/o because of small amount of blood which he coughed up lungs are clear Lab Data MDM Lab Attestation statement: I reviewed the patient's lab results. Labs: Lab Results 01/14/23 Range/Units 02:39 Influenza Type A (PCR) NEGATIVE (Negative) Influenza Type B (PCR) NEGATIVE (Negative) RSV RNA Qual (PCR) NEGATIVE (Negative) SARS-CoV-2 RNA (RT-PCR) NEGATIVE (Negative) S. pyogenes GrpA HERMELINDO Negative (Negative) Discharge Plan Discharge Clinical Impression: Allergic rhinosinusitis Patient Disposition: Home, Self-Care Instructions: Allergic Rhinitis (ED) Additional Instructions: Take antibiotic as prescribed Prednisone as prescribed Follow with PCP Prescriptions: New benzonatate 200 mg capsule 200 mg PO TID PRN (Reason: cough) Qty: 30 0RF prednisone 20 mg tablet 40 mg PO DAILY Qty: 10 0RF amoxicillin-pot clavulanate 875-125 mg tablet 1 tab PO BID Qty: 20 0RF fexofenadine [Apryl Allergy] 180 mg tablet 180 mg PO DAILY Qty: 90 0RF fluticasone propionate [Children's Flonase Allergy Rlf] 50 mcg/actuation spray,suspension 2 spray intranasal DAILY PRN (Reason: nasal congestion) Qty: 16 0RF Rx Instructions: administer into each nostril No Action lorazepam [Ativan] 1 mg tablet 1 mg PO TID PRN (Reason: anxiety) Qty: 10 0RF tobramycin 0.3 % drops 2 drp ophthalmic-Right Q4H 5 Days Qty: 5 0RF ondansetron 4 mg tablet,disintegrating 4 mg PO Q6H PRN (Reason: nausea and vomiting) Qty: 14 0RF albuterol sulfate 90 mcg/actuation aerosol powdr breath activated 2 inh inhalation Q4-6H PRN (Reason: shortness of breath or wheezing) Qty: 1 0RF benzonatate 100 mg capsule 100 mg PO BID PRN (Reason: cough) Qty: 20 0RF prednisone 20 mg tablet 40 mg PO DAILY 5 Days Qty: 10 0RF ondansetron 4 mg tablet,disintegrating 4 mg PO Q6H PRN (Reason: nausea and vomiting) Qty: 14 0RF methocarbamol 500 mg tablet 500 mg PO QID Qty: 16 0RF Stand Alone Forms: Work/School Release Interventions: ED Discharge Assessment Last Done: 01/14/23 05:10 Discharge Date/Time: 01/14/23 05:10
[2023-01-14 04:35] LABS: IDNOW Serial# 6674DD1D; Strep A Nucleic Acid Negative (Negative)
[2023-01-14] MEDS: Amoxicillin/Potassium Clav 875 MG TABLET PO (05:14)
[2023-01-14] MEDS: predniSONE 20 MG TABLET 40 MG PO (05:14)
[2023-01-14] MEDS: Benzonatate 100 MG CAPSULE 200 MG PO (05:14)
== END 2023-01-14 05:10 | disposition home or self-care (01) ==
PROVIDERS: Emergency Provider Internal Medicine
DX: J30.9 Allergic rhinitis, unspecified (principal); Z20.822 Contact with and (suspected) exposure to COVID-19; Z20.828 Contact with and (suspected) exposure to other viral communicable diseases; J02.9 Acute pharyngitis, unspecified; F17.200 Nicotine dependence, unspecified, uncomplicated
CPT/HCPCS: 0241U; 87651; 99283; 99284

== ENCOUNTER 2023-03-17 07:51 | Emergency (ER) | payer MEDICAID, SELFPAY ==
[2023-03-17 07:57] VITALS: PULSE 76; RESP 18; TEMP 36.9; O2SAT 98; BMI 24.5
[2023-03-17 08:12] LABS: COVID-19 Test Positive (Negative); IDNOW Serial# BCCEAD1C
[2023-03-17 08:20] LABS: IDNOW Serial# 08D9AD1C; Influenza A Negative (Negative); Influenza B2 Negative (Negative)
--- NOTE | 2023-03-17 08:20 | ED_ITS ---
HPI - URI/Sore Throat General Chief Complaint: Upper Respiratory Symptoms Stated Complaint: body aches headache covid + Time Seen by Provider: 03/17/23 08:20 Source: patient and RN notes reviewed Mode of arrival: ambulatory Limitations: no limitations History of Present Illness HPI Narrative: This is a 32-year-old male presenting to the emergency department with complaints of fevers, chills, body aches, cough, headache, nausea, and vomiting since yesterday. Patient states that he has recently exposed to his niece who tested positive for COVID. He took 2 at home COVID tests which were both positive. Patient states that he has been taking Tylenol however has had difficulty taking medications due to nausea and vomiting. he denies any shortness of breath or palpitations. He denies sharp chest pain. No other complaints or concerns at this time and MD elicited complaint: fever, cough and nasal congestion Onset (ago): day(s) Consistency: constant Severity: moderate Able to tolerate fluids by mouth: No Exacerbating factors: nothing Relieving factors: nothing Associated symptoms: denies other symptoms Treatments prior to arrival: none Related Data Previous Rx's Medication Instructions Recorded lorazepam 1 mg tablet (Ativan) 1 mg PO TID PRN anxiety #10 tabs 10/26/20 ondansetron 4 mg disintegrating 4 mg PO Q6H PRN nausea and 10/19/21 tablet vomiting #14 tabs albuterol sulfate 90 mcg/actuation 2 inh inhalation Q4-6H PRN 04/23/22 breath activated powder inhaler shortness of breath or wheezing #1 ea benzonatate 100 mg capsule 100 mg PO BID PRN cough #20 caps 04/23/22 ondansetron 4 mg disintegrating 4 mg PO Q6H PRN nausea and 04/23/22 tablet vomiting #14 tabs prednisone 20 mg tablet 40 mg (2 x 20 mg) PO DAILY 5 days 04/23/22 #10 tabs tobramycin 0.3 % eye drops 2 drp ophthalmic-Right Q4H 5 days 04/30/22 #5 mL methocarbamol 500 mg tablet 500 mg PO QID muscle spasms #16 11/22/22 tabs amoxicillin 875 mg-potassium 1 tab PO BID #20 tabs 01/14/23 clavulanate 125 mg tablet benzonatate 200 mg capsule 200 mg PO TID PRN cough #30 caps 01/14/23 fexofenadine 180 mg tablet 180 mg PO DAILY #90 tabs 01/14/23 (Apryl Allergy) fluticasone propionate 50 2 spray intranasal DAILY PRN nasal 01/14/23 mcg/actuation nasal congestion #16 grams spray,suspension (Children's Flonase Allergy Relief) prednisone 20 mg tablet 40 mg (2 x 20 mg) PO DAILY #10 tabs 01/14/23 ondansetron HCl 4 mg tablet 4 mg PO Q6-8H PRN nausea and 03/17/23 vomiting 5 days #5 tabs Allergies Allergy/AdvReac Type Severity Reaction Status Date / Time ibuprofen [IBUPROFEN] Allergy Severe FACE Verified 03/17/23 07:56 SWELLS, HIVES cat dander [CATS] Allergy Intermediate ITCHY EYES Verified 03/17/23 07:56 AND THROAT, HIVES mint Allergy Mild Rash Verified 03/17/23 07:56 aspirin Allergy Itching Verified 03/17/23 07:56 Review of Systems Review of Systems: Yes all other systems are reviewed and are negative [facility] [place] Past Medical History Medical History Asthma Social History Social History Unable to assess alcohol history related to: Unable to respond Alcohol intake: current Alcohol intake frequency: holidays/special occasions only Patient Tobacco Use Status: Current someday Tobacco user Use of substances other than those prescribed or required for medical reasons: No Substance Use Type: Marijuana Any prior treatment program specific to substance use: No Advance Directives: No Advance Directives Information Provided: No Physical Exam Vital Signs: Vital Signs: Last Vital Signs Temp 98.5 F 03/17/23 07:57 Pulse 76 03/17/23 07:57 Resp 18 03/17/23 07:57 Pulse Ox 98 03/17/23 10:00 O2 Del Method Room Air 03/17/23 10:00 BMI result Body Mass Index 24.5 Const: General: cooperative, comfortable and no acute distress Orientation/consciousness: patient oriented x3 Limitations: no limitations HEENT: Head: Yes normal to inspection, Yes normocephalic and Yes atraumatic Ears: hearing grossly normal bilaterally and TM's normal bilaterally General nose exam: Normal external nose present Face and sinus: Yes normal facial exam Mouth: Normal oral and palatal mucosa present, oropharynx normal and moist mucous membranes Throat: Yes posterior oropharynx normal, Yes tonsils normal and Yes uvula midline Eyes: General: appearance normal, both eyes and all related structures Eyelids: Yes eyelids normal Conjunctivae: conjunctivae normal Sclerae: sclerae normal Pupils: Equal, round and reactive pupils present EOM: EOMs intact bilaterally Neck: Neck: Yes normal visual inspection, Yes full ROM and Yes no lymphadenopathy Lymphatic: no lymphadenopathy noted Chest: Chest palpation & inspection: normal inspection of the chest Resp: Effort & Inspection: normal respiratory effort and able to speak in complete sentences Auscultation: clear to auscultation bilaterally, no crackles, no rales, no rhonchi and no wheezes Cardio: Rate: regular rate Rhythm: regular rhythm Heart sounds: S1 normal heart sound present and S2 normal heart sound present GI: Other: Abdomen is soft, nontender, nondistended Inspection: Yes normal to inspection Skin: General skin exam: no rashes or lesions noted Trauma: no lacerations or abrasions Wounds: no wounds Neuro: General: patient oriented x3 and moves all extremities Cranial nerves: Yes Equal, round and reactive pupils present Extrem: General: Yes normal to inspection Right upper extremity: normal to inspection Left upper extremity: normal to inspection Right lower extremity: normal to inspection Left lower extremity: normal to inspection Medications Administered Discontinued Medications Generic Name Dose Route Start Last Admin Trade Name Freq PRN Reason Stop Dose Admin Ondansetron HCl 4 mg 03/17/23 08:32 03/17/23 08:45 Ondansetron Odt 4 Mg Tab.Rapdis TRANSLINGU 03/17/23 08:33 4 mg ONCE ONE Administration Medical Decision Making Medical Decision Making [facility] Narrative: 32 y/o M presenting to ER with complaints of fevers, chills, body aches, cough, headache, nausea, and vomiting since yesterday. On arrival, pt nontoxic appearing, vital signs stable. Lungs CTAB, Abdomen is soft, nontender, nondistended. Viraal swabs were collected, pt COVID+. Given nausea, pt medicated with Zofran. PO trial performed, pt able to tolerate PO in department. Discharged pt with return precautions. Pt understands and agrees with plan. Stable for discharge. Differential Diagnosis Differential Diagnoses: The differential diagnosis associated with the presentation includes covid, gastritis, flu, gastroenteritis Lab Data MDM Lab Attestation statement: I reviewed the patient's lab results. Labs: Lab Results 03/17/23 Range/Units 07:58 COVID-19 (REGGIE) Positive A (Negative) COVID-19 Clin Com See Note Influenza Type A (HERMELINDO) Negative (Negative) Influenza Type B (HERMELINDO) Negative (Negative) Influenza A & B Note See Note Discharge Plan Discharge Clinical Impression: COVID-19 Patient Disposition: Home, Self-Care Instructions: COVID-19 (Coronavirus Disease 2019) (ED) Additional Instructions: your seen in the emergency department due to cough, nausea, vomiting. you tested positive for COVID-19 today. This is a virus that does get better on its own. Please drink plenty of fluids get plenty of rest. Continue taking Tylenol as needed for pain and symptoms. You may take prescribed anti nausea medication, Zofran, as needed. Please avoid exposures to individuals that are immunocompromised including young children and older adults. This is day 0 of COVID-19. You may return back to the public while wearing a maskafter day 5 as long as your afebrile for 24 hours without any Tylenol. Follow the CDC recommendations for precautions. Prescriptions: New ondansetron HCl 4 mg tablet 4 mg PO Q6-8H PRN (Reason: nausea and vomiting) 5 Days Qty: 5 0RF No Action lorazepam [Ativan] 1 mg tablet 1 mg PO TID PRN (Reason: anxiety) Qty: 10 0RF tobramycin 0.3 % drops 2 drp ophthalmic-Right Q4H 5 Days Qty: 5 0RF ondansetron 4 mg tablet,disintegrating 4 mg PO Q6H PRN (Reason: nausea and vomiting) Qty: 14 0RF albuterol sulfate 90 mcg/actuation aerosol powdr breath activated 2 inh inhalation Q4-6H PRN (Reason: shortness of breath or wheezing) Qty: 1 0RF benzonatate 100 mg capsule 100 mg PO BID PRN (Reason: cough) Qty: 20 0RF prednisone 20 mg tablet 40 mg PO DAILY 5 Days Qty: 10 0RF ondansetron 4 mg tablet,disintegrating 4 mg PO Q6H PRN (Reason: nausea and vomiting) Qty: 14 0RF benzonatate 200 mg capsule 200 mg PO TID PRN (Reason: cough) Qty: 30 0RF prednisone 20 mg tablet 40 mg PO DAILY Qty: 10 0RF amoxicillin-pot clavulanate 875-125 mg tablet 1 tab PO BID Qty: 20 0RF fexofenadine [Apryl Allergy] 180 mg tablet 180 mg PO DAILY Qty: 90 0RF fluticasone propionate [Children's Flonase Allergy Rlf] 50 mcg/actuation spray,suspension 2 spray intranasal DAILY PRN (Reason: nasal congestion) Qty: 16 0RF Rx Instructions: administer into each nostril methocarbamol 500 mg tablet 500 mg PO QID Qty: 16 0RF Interventions: ED Discharge Assessment Last Done: 03/17/23 10:03 Discharge Date/Time: 03/17/23 10:03
[2023-03-17] MEDS: Ondansetron ODT 4 MG TAB.RAPDIS TRANSLINGU (08:45)
[2023-03-17 10:00] VITALS: O2SAT 98
== END 2023-03-17 10:03 | disposition home or self-care (01) ==
PROVIDERS: Emergency Provider Student in an Organized Health Care Education/Training Program
DX: U07.1 COVID-19 (principal)
CPT/HCPCS: 87502; 87635; 99283; 99284

== ENCOUNTER 2024-04-16 23:18 | Emergency (ER) | payer MEDICAID, SELFPAY ==
[2024-04-16 23:39] VITALS: BP 136/88; PULSE 78; RESP 18; TEMP 36.6; O2SAT 99; BMI 24.1
--- NOTE | 2024-04-17 04:28 | PC.NURSE ---
Pt ambulatory to RM 20 from waiting room, assumed care of pt at this time. A&Ox3 skin pwd respirations even unlabored. Reporting shooting lower back pain radiating down BLE x few days after bending over while cleaning. Denies urinary symptoms, denies numbness or tingling. Awaiting primary provider eval, aware of plan of care.
[2024-04-17 05:14] VITALS: BP 139/91; PULSE 64; RESP 14; TEMP 36.7; O2SAT 98
--- NOTE | 2024-04-17 06:09 | ED.BACK ---
HPI - Back Pain/Injury General Chief Complaint: General Medical Stated Complaint: back pain Time Seen by Provider: 04/17/24 06:05 Source: patient Mode of arrival: ambulatory Limitations: no limitations History of Present Illness ED Provider: NADIR HPI Narrative: 33 yo male with PMH of asthma, no IVDA not on thinners at work was bending down and when he got up he felt a severe pain across his lower lumbar back with radiation down the legs. He takes tylenol with little relief. Has never had a back injury before. He has no fevers, numbness, weakness, loss of control of bowel or bladder and no saddle anesthesia. He states he just can't get comfortable. Pain is always there but no radicular symptoms down either leg he just feels throbbing MD elicited complaint: back injury Onset (ago): day(s) (Friday) Timing: constant Severity: severe Similar Symptoms Previously: No Quality: throbbing Location: lumbar spine Radiation: buttocks Exacerbating factors: movement Relieving factors: none Context: bending Associated symptoms: denies other symptoms Treatments prior to arrival: acetaminophen Work related injury: Yes Related Data Previous Rx's ?Medication ?Instructions ?Recorded lorazepam 1 mg tablet (Ativan) 1 mg PO TID PRN anxiety #10 tabs 10/26/20 ondansetron 4 mg disintegrating 4 mg PO Q6H PRN nausea and 10/19/21 tablet vomiting #14 tabs albuterol sulfate 90 mcg/actuation 2 inh inhalation Q4-6H PRN 04/23/22 breath activated powder inhaler shortness of breath or wheezing #1 ea benzonatate 100 mg capsule 100 mg PO BID PRN cough #20 caps 04/23/22 ondansetron 4 mg disintegrating 4 mg PO Q6H PRN nausea and 04/23/22 tablet vomiting #14 tabs prednisone 20 mg tablet 40 mg (2 x 20 mg) PO DAILY 5 days 04/23/22 #10 tabs tobramycin 0.3 % eye drops 2 drp ophthalmic-Right Q4H 5 days 04/30/22 #5 mL methocarbamol 500 mg tablet 500 mg PO QID muscle spasms #16 11/22/22 tabs amoxicillin 875 mg-potassium 1 tab PO BID #20 tabs 01/14/23 clavulanate 125 mg tablet benzonatate 200 mg capsule 200 mg PO TID PRN cough #30 caps 01/14/23 fexofenadine 180 mg tablet 180 mg PO DAILY #90 tabs 01/14/23 (Apryl Allergy) fluticasone propionate 50 2 spray intranasal DAILY PRN nasal 01/14/23 mcg/actuation nasal congestion #16 grams spray,suspension (Children's Flonase Allergy Relief) prednisone 20 mg tablet 40 mg (2 x 20 mg) PO DAILY #10 tabs 01/14/23 ondansetron HCl 4 mg tablet 4 mg PO Q6-8H PRN nausea and 03/17/23 vomiting 5 days #5 tabs cyclobenzaprine 10 mg tablet 10 mg PO TID PRN muscle spasm #20 04/17/24 tabs hydrocodone 5 mg-acetaminophen 325 1 tab PO Q6H PRN pain #10 tabs 04/17/24 mg tablet lidocaine 5 % topical patch 1 patch topical DAILY #30 ea 04/17/24 prednisone 20 mg tablet 40 mg (2 x 20 mg) PO DAILY 5 days 04/17/24 #10 tabs Allergies Allergy/AdvReac Type Severity Reaction Status Date / Time ibuprofen [IBUPROFEN] Allergy Severe FACE Verified 04/16/24 23:47 SWELLS, HIVES cat dander [CATS] Allergy Intermediate ITCHY EYES Verified 04/16/24 23:47 AND THROAT, HIVES mint Allergy Mild Rash Verified 04/16/24 23:47 aspirin Allergy Itching Verified 04/16/24 23:47 Review of Systems Review of Systems: Constitutional : No Weight loss, No Fever, No Chills, ENT/Mouth : No Hearing loss, No Ear Pain, No Nasal Congestion, No Sinus Pain, No Hoarseness, No sore throat, No Rhinorrhea, No Swallowing Difficulty Cardiovascular : No Chest Pain, No SOB Respiratory : No Cough, No Dyspnea Gastrointestinal : No Nausea, No Vomiting, No Diarrhea, No abdominal Pain, No Hematochezia, No Melena Genitourinary : No Dysuria, No Urinary Frequency, No Hematuria, No Urinary Incontinence, Musculoskeletal : positive back pain Skin : No Skin Lesions, No rash Neuro : No Weakness, No Numbness, No Paresthesias, no loss of bowel or bladder incontinence, no saddle anesthesia all other systems reviewed are are negative PMFSH Past Medical History Attestation statement: The following information was validated with the patient. Source: old records reviewed Medical History Asthma Social History Social History Unable to assess alcohol history related to: Unable to respond Alcohol intake: current Alcohol intake frequency: a few times a month Patient Tobacco Use Status: Current someday Tobacco user Smoked in Last 30 Days: No Substance Use Type: Marijuana Advance Directives: No Advance Directives Information Provided: Yes Do you have a plan to hurt others: No Plan Physical Exam Vital Signs: Vital Signs: Last Vital Signs Temp 98.1 F 04/17/24 06:58 Pulse 67 04/17/24 06:58 Resp 14 04/17/24 06:58 BP 151/97 H 04/17/24 06:58 Pulse Ox 100 04/17/24 06:58 O2 Del Method Room Air 04/17/24 06:58 BMI result Body Mass Index 24.1 Appearance: Alert. Oriented X3. No acute distress. Eyes: Pupils equal, round and reactive to light. ENT: Pharynx normal. Neck: Normal inspection. Neck supple. CVS: Normal heart rate and rhythm. Pulses normal. Respiratory: No respiratory distress. Breath sounds normal. Abdomen: Soft and nontender. Back: ttp along entire lumbar paraspinal muscles Skin: Skin warm and dry. Normal skin color. Normal skin turgor. Extremities: No lower extremity edema. No calf ttp Neuro: Oriented X 3. No motor deficit. No sensory deficit. CN2-12 intact 2+ DTR in patella and achilles, L5 5/5 bilaterally, SILT inner thigh Medical Decision Making Medical Decision Making MDM Narrative: 33 yo male with PMH of asthma, no IVDA not on thinners here with c/o lower lumbar pain after bending - he has no red flags in history and no b/b incontinence, no saddle anesthesia. At this time no fall doubt fracture suspect spasm vs herniation will send home with precautions and treat with oral pain medications. He will be given precautions to return Differential Diagnosis Differential Diagnoses: The differential diagnosis associated with the presentation includes lumbar radiculopathy, disc herniation suspected Admission/Observation Consideration of admission/observation: Escalation of care including admission/observation considered can ambulate and no red flags on exam or history stable for DC External Record Review External record reviewed: Outpatient record Prescription Management I considered prescription management with: Pain Medication and Other Discharge Plan Discharge Clinical Impression: Herniated lumbar intervertebral disc Patient Disposition: Home, Self-Care Instructions: Lumbar Disc Herniation (ED), Acute Low Back Pain (ED), Lumbar Radiculopathy (ED) Additional Instructions: avoid lifting more than 10lbs for 2 weeks, return for any numbness, weakness, loss of control of bowel or bladder rotate medications Prescriptions: New cyclobenzaprine 10 mg tablet 10 mg PO TID PRN (Reason: muscle spasm) Qty: 20 0RF prednisone 20 mg tablet 40 mg PO DAILY 5 Days Qty: 10 0RF lidocaine 5 % adhesive patch,medicated 1 patch topical DAILY Qty: 30 0RF Rx Instructions: leave on most painful area for up to 12 hrs hydrocodone-acetaminophen 5-325 mg tablet 1 tab PO Q6H PRN (Reason: pain) Qty: 10 0RF Rx Instructions: partial fill okay; Partial Fill upon patient request. No Action lorazepam [Ativan] 1 mg tablet 1 mg PO TID PRN (Reason: anxiety) Qty: 10 0RF tobramycin 0.3 % drops 2 drp ophthalmic-Right Q4H 5 Days Qty: 5 0RF ondansetron 4 mg tablet,disintegrating 4 mg PO Q6H PRN (Reason: nausea and vomiting) Qty: 14 0RF albuterol sulfate 90 mcg/actuation aerosol powdr breath activated 2 inh inhalation Q4-6H PRN (Reason: shortness of breath or wheezing) Qty: 1 0RF benzonatate 100 mg capsule 100 mg PO BID PRN (Reason: cough) Qty: 20 0RF prednisone 20 mg tablet 40 mg PO DAILY 5 Days Qty: 10 0RF ondansetron 4 mg tablet,disintegrating 4 mg PO Q6H PRN (Reason: nausea and vomiting) Qty: 14 0RF benzonatate 200 mg capsule 200 mg PO TID PRN (Reason: cough) Qty: 30 0RF prednisone 20 mg tablet 40 mg PO DAILY Qty: 10 0RF amoxicillin-pot clavulanate 875-125 mg tablet 1 tab PO BID Qty: 20 0RF fexofenadine [Apryl Allergy] 180 mg tablet 180 mg PO DAILY Qty: 90 0RF fluticasone propionate [Children's Flonase Allergy Rlf] 50 mcg/actuation spray,suspension 2 spray intranasal DAILY PRN (Reason: nasal congestion) Qty: 16 0RF Rx Instructions: administer into each nostril ondansetron HCl 4 mg tablet 4 mg PO Q6-8H PRN (Reason: nausea and vomiting) 5 Days Qty: 5 0RF methocarbamol 500 mg tablet 500 mg PO QID Qty: 16 0RF Stand Alone Forms: Work/School Release Interventions: ED Discharge Assessment Last Done: 04/17/24 06:58 Discharge Date/Time: 04/17/24 06:59 Print Language: Romanian
--- NOTE | 2024-04-17 06:26 | PC.NURSE ---
Provider to bedside for primary eval.
[2024-04-17 06:28] VITALS: BP 151/97; PULSE 67; RESP 14; TEMP 36.7; O2SAT 100
[2024-04-17 06:58] VITALS: BP 151/97; PULSE 67; RESP 14; TEMP 36.7; O2SAT 100
== END 2024-04-17 06:59 | disposition home or self-care (01) ==
PROVIDERS: Emergency Provider Emergency Medicine
DX: M51.16 Intervertebral disc disorders with radiculopathy, lumbar region (principal); M54.50 Low back pain, unspecified
CPT/HCPCS: 99283; 99284

== ENCOUNTER 2024-06-30 08:16 | Emergency (ER) | payer MEDICAID, SELFPAY ==
--- NOTE | ~2024-06-30 | XR_ITS ---
EXAMINATION: XR CHEST 2 VIEWS HISTORY: left ribs hurt from fall COMPARISON: There are no prior studies for comparison. FINDINGS: PA and lateral views of the chest are submitted. The lungs are expanded and clear. There is no pleural effusion, pneumothorax, or pulmonary vascular congestion. The heart is normal in size. The bones are intact. XR/XR chest 2V IMPRESSION: Normal examination of the chest. Electronically signed by: Nestor Mcnair MD 06/30/2024 09:00 AM EDT
--- NOTE | ~2024-06-30 | CT_ITS ---
EXAMINATION: CT CHEST WITHOUT CONTRAST CLINICAL INFORMATION: Left-sided chest pain. Concerning with fracture. COMPARISON: None available. TECHNIQUE: Multidetector volumetric CT imaging of the chest was done. Axial MIP volume rendering provided. Sagittal and coronal reformatted images were obtained. This CT examination was performed using dose optimization techniques as appropriate, variously including the following: *Automated exposure control *Adjustment of mA and/or kV according to patient size (this includes techniques or standardized protocols for targeted exams where dose is matched to indication/reason for exam; i.e. extremities or head) *Use of iterative reconstruction technique. DLP: 286 mGy centimeter. FINDINGS: [employer]: No hyperinflation. Normal size heart silhouette. LUNGS: No airspace disease. No gross pulmonary nodules. No bronchiectasis. No honeycombing. Respiratory airways is patent. MEDIASTINUM: No lymphadenopathy. No aneurysm, thoracic aorta. No pericardial effusion. No pneumomediastinum. No hemomediastinum. No hemopericardium. CORONARY ARTERY CALCIFICATION: No PLEURA: No pleural effusion. No pneumothorax. No hemothorax. AXILLA: Mildly prominent lymph nodes, nonspecific. UPPER ABDOMEN: No hydronephrosis in the included kidneys. Decreased attenuation in the liver.. OSSEOUS STRUCTURES: No rib fractures. Sternum is intact. Scapula is intact bilaterally. No acute fracture or listhesis in the axial skeleton. No lytic or blastic lesions. CT/CT chest wo IV con IMPRESSION: No acute airspace disease. No acute fracture, ribs. Hepatic steatosis. Fleischner guidelines were followed. Electronically signed by: Alexis Rand MD 06/30/2024 09:45 AM EDT
[2024-06-30 08:25] VITALS: BP 146/101; PULSE 86; RESP 18; TEMP 36.5; O2SAT 97; BMI 26.3
--- NOTE | 2024-06-30 09:00 | ED_ITS ---
HPI - Fall General Chief Complaint: Fall Stated Complaint: Left rib cage hurts a lot / 10/31 for pain Time Seen by Provider: 06/30/24 08:51 Source: patient Mode of arrival: ambulatory Limitations: no limitations History of Present Illness HPI Narrative: 33 years old male presented to the emergency department complaining of left chest wall pain he stated that he fell skateboarding on Friday. Denies any other injury denies any abdominal pain any neck pain any headache MD complaint: fall Onset (ago): day(s) (2) Fall from: other (Skateboard) Fall witnessed: no Place fall occurred: home Loss of consciousness: none Prolonged down time: no Symptoms prior to fall: none Location of injury: other (Chest wall) Severity: mild Quality: dull Related Data Previous Rx's ?Medication ?Instructions ?Recorded lorazepam 1 mg tablet (Ativan) 1 mg PO TID PRN anxiety #10 tabs 10/26/20 ondansetron 4 mg disintegrating 4 mg PO Q6H PRN nausea and 10/19/21 tablet vomiting #14 tabs albuterol sulfate 90 mcg/actuation 2 inh inhalation Q4-6H PRN 04/23/22 breath activated powder inhaler shortness of breath or wheezing #1 ea benzonatate 100 mg capsule 100 mg PO BID PRN cough #20 caps 04/23/22 ondansetron 4 mg disintegrating 4 mg PO Q6H PRN nausea and 04/23/22 tablet vomiting #14 tabs prednisone 20 mg tablet 40 mg (2 x 20 mg) PO DAILY 5 days 04/23/22 #10 tabs tobramycin 0.3 % eye drops 2 drp ophthalmic-Right Q4H 5 days 04/30/22 #5 mL methocarbamol 500 mg tablet 500 mg PO QID muscle spasms #16 11/22/22 tabs amoxicillin 875 mg-potassium 1 tab PO BID #20 tabs 01/14/23 clavulanate 125 mg tablet benzonatate 200 mg capsule 200 mg PO TID PRN cough #30 caps 01/14/23 fexofenadine 180 mg tablet 180 mg PO DAILY #90 tabs 01/14/23 (Apryl Allergy) fluticasone propionate 50 2 spray intranasal DAILY PRN nasal 01/14/23 mcg/actuation nasal congestion #16 grams spray,suspension (Children's Flonase Allergy Relief) prednisone 20 mg tablet 40 mg (2 x 20 mg) PO DAILY #10 tabs 01/14/23 ondansetron HCl 4 mg tablet 4 mg PO Q6-8H PRN nausea and 03/17/23 vomiting 5 days #5 tabs cyclobenzaprine 10 mg tablet 10 mg PO TID PRN muscle spasm #20 04/17/24 tabs hydrocodone 5 mg-acetaminophen 325 1 tab PO Q6H PRN pain #10 tabs 04/17/24 mg tablet lidocaine 5 % topical patch 1 patch topical DAILY #30 ea 04/17/24 prednisone 20 mg tablet 40 mg (2 x 20 mg) PO DAILY 5 days 04/17/24 #10 tabs Allergies Allergy/AdvReac Type Severity Reaction Status Date / Time ibuprofen [IBUPROFEN] Allergy Severe FACE Verified 06/30/24 08:28 SWELLS, HIVES cat dander [CATS] Allergy Intermediate ITCHY EYES Verified 06/30/24 08:28 AND THROAT, HIVES mint Allergy Mild Rash Verified 06/30/24 08:28 aspirin Allergy Itching Verified 06/30/24 08:28 Review of Systems Constitutional: Constitutional: Reports no additional constitutional complaints ENT: Reports system reviewed and no additional complaints, except as documented Musculoskeletal: Musculoskeletal: Reports no additional musculoskeletal complaints PMFSH Past Medical History Attestation statement: The following information was validated with the patient. Source: unable to obtain Medical History Asthma Social History Social History Unable to assess alcohol history related to: Unable to respond Alcohol intake: current Alcohol intake frequency: a few times a month Patient Tobacco Use Status: Current someday Tobacco user Substance Use Type: Marijuana Advance Directives: No Advance Directives Information Provided: Yes Physical Exam Vital Signs: Vital Signs: Last Vital Signs Temp 97.7 F 06/30/24 08:25 Pulse 86 06/30/24 08:25 Resp 18 06/30/24 08:25 BP 146/101 H 06/30/24 08:25 Pulse Ox 97 06/30/24 08:25 O2 Del Method Room Air 06/30/24 08:25 BMI result Body Mass Index 26.3 No acute distress Const: General: cooperative Nutritional Appearance: average body habitus and well nourished Orientation/consciousness: patient oriented x3 HEENT: Head: Yes normal to inspection Ears: hearing grossly normal bilaterally Face and sinus: Yes normal facial exam Neck: Neck: Yes normal visual inspection and Yes full ROM Chest: Other: Tenderness in the left chest wall Resp: Effort & Inspection: normal respiratory effort Cardio: Jugular venous distension: no JVD Rate: regular rate Rhythm: regular rhythm GI: Inspection: Yes normal to inspection Palpation (GI): Soft to palpation : General: Yes no CVA tenderness Back/Spine/Pelvis: Back: no CVA tenderness Skin: General skin exam: no rashes or lesions noted and elasticity normal Lesions: no lesions Rashes: no rashes Neuro: General: patient oriented x3 Extrem: General: Yes normal to inspection, Yes full ROM and Yes capillary refill normal Course Reevaluation(s) Reevaluation #1: CT chest no fracture no pulmonary contusion no pneumothorax at this point I think he can be safely discharged home Time: 10:04 Medical Decision Making Medical Decision Making [facility] Narrative: Patient presented to the ED complaining of left chest wall pain Differential Diagnosis Differential Diagnoses: The differential diagnosis associated with the presentation includes rib fracture/pneumothorax/pulmonary consult Admission/Observation Consideration of admission/observation: Escalation of care including admission/observation considered Independent Interpretation I performed an independent interpretation of an: Plain X-Ray and CT Scan Radiology Impression Discussion of test interpretation with radiology: I have reviewed the radiologist's reading. Radiologist Impression: pneumothorax. No hemothorax. AXILLA: Mildly prominent lymph nodes, nonspecific. UPPER ABDOMEN: No hydronephrosis in the included kidneys. Decreased attenuation in the liver.. OSSEOUS STRUCTURES: No rib fractures. Sternum is intact. Scapula is intact bilaterally. No acute fracture or listhesis in the axial skeleton. No lytic or blastic lesions. CT/CT chest wo IV con IMPRESSION: No acute airspace disease. No acute fracture, ribs. Hepatic steatosis. Fleischner guidelines were followed. Electronically signed by: Alexis Rand MD 06/30/2024 09:45 AM EDT RP Discharge Plan Discharge Clinical Impression: Chest wall contusion Qualifiers: Encounter type: initial encounter Laterality: left Qualified Code(s): S20.212A - Contusion of left front wall of thorax, initial encounter Patient Disposition: Home, Self-Care Instructions: Contusion in Adults (ED) Additional Instructions: Follow-up with your primary care physician, the x-ray and CAT scan were normal no ribs fracture Prescriptions: No Action lorazepam [Ativan] 1 mg tablet 1 mg PO TID PRN (Reason: anxiety) Qty: 10 0RF tobramycin 0.3 % drops 2 drp ophthalmic-Right Q4H 5 Days Qty: 5 0RF ondansetron 4 mg tablet,disintegrating 4 mg PO Q6H PRN (Reason: nausea and vomiting) Qty: 14 0RF albuterol sulfate 90 mcg/actuation aerosol powdr breath activated 2 inh inhalation Q4-6H PRN (Reason: shortness of breath or wheezing) Qty: 1 0RF benzonatate 100 mg capsule 100 mg PO BID PRN (Reason: cough) Qty: 20 0RF prednisone 20 mg tablet 40 mg PO DAILY 5 Days Qty: 10 0RF ondansetron 4 mg tablet,disintegrating 4 mg PO Q6H PRN (Reason: nausea and vomiting) Qty: 14 0RF benzonatate 200 mg capsule 200 mg PO TID PRN (Reason: cough) Qty: 30 0RF prednisone 20 mg tablet 40 mg PO DAILY Qty: 10 0RF amoxicillin-pot clavulanate 875-125 mg tablet 1 tab PO BID Qty: 20 0RF fexofenadine [Apryl Allergy] 180 mg tablet 180 mg PO DAILY Qty: 90 0RF fluticasone propionate [Children's Flonase Allergy Rlf] 50 mcg/actuation spray,suspension 2 spray intranasal DAILY PRN (Reason: nasal congestion) Qty: 16 0RF Rx Instructions: administer into each nostril ondansetron HCl 4 mg tablet 4 mg PO Q6-8H PRN (Reason: nausea and vomiting) 5 Days Qty: 5 0RF methocarbamol 500 mg tablet 500 mg PO QID Qty: 16 0RF cyclobenzaprine 10 mg tablet 10 mg PO TID PRN (Reason: muscle spasm) Qty: 20 0RF prednisone 20 mg tablet 40 mg PO DAILY 5 Days Qty: 10 0RF lidocaine 5 % adhesive patch,medicated 1 patch topical DAILY Qty: 30 0RF Rx Instructions: leave on most painful area for up to 12 hrs hydrocodone-acetaminophen 5-325 mg tablet 1 tab PO Q6H PRN (Reason: pain) Qty: 10 0RF Rx Instructions: partial fill okay; Partial Fill upon patient request. Referrals: Aung Funes MD [Primary Care Provider] - 2 days Print Language: Mohawk
[2024-06-30 10:36] VITALS: BP 146/101; PULSE 86; RESP 18; TEMP 36.5; O2SAT 97
== END 2024-06-30 10:36 | disposition home or self-care (01) ==
PROVIDERS: Emergency Provider Emergency Medicine; PCP Internal Medicine
DX: S20.212A Contusion of left front wall of thorax, initial encounter (principal); R07.81 Pleurodynia; V00.131A Fall from skateboard, initial encounter; Y93.9 Activity, unspecified; Y92.9 Unspecified place or not applicable; Y99.8 Other external cause status
CPT/HCPCS: 71046; 71250; 99282; 99284

== ENCOUNTER → 2024-06-30 08:43 | Outpatient (BNV) | payer MEDICAID, SELFPAY | PROVIDERS: Emergency Provider Emergency Medicine; PCP Internal Medicine; Visit Provider Radiology Diagnostic Radiology | DX: K76.0 Fatty (change of) liver, not elsewhere classified (principal); R07.81 Pleurodynia; W19.XXXA Unspecified fall, initial encounter | CPT/HCPCS: 71046; 71250 ==